=== PATIENT | male | born 1955 | race American Indian/Alaskan Native ===

== ENCOUNTER 2017-04-23 07:07 | Emergency (ER) | payer OTHER, MEDICARE ==
[2017-04-23 07:39] VITALS: BP 160/93
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
== END 2017-04-23 08:47 | disposition home or self-care (01) ==
LOC: ED 07:07
DX: M79.602 Pain in left arm (principal); M54.89 Other dorsalgia; J44.9 Chronic obstructive pulmonary disease, unspecified; V89.2XXA Person injured in unspecified motor-vehicle accident, traffic, initial encounter; Y93.89 Activity, other specified; Y99.8 Other external cause status; Y92.89 Other specified places as the place of occurrence of the external cause; Z85.46 Personal history of malignant neoplasm of prostate; Z85.89 Personal history of malignant neoplasm of other organs and systems; Z98.890 Other specified postprocedural states; Z87.891 Personal history of nicotine dependence
CPT/HCPCS: 99282

== ENCOUNTER 2017-10-14 07:16 | Outpatient (CLI) | payer MEDICARE ==
--- NOTE | 2017-10-14 07:50 | XRay Report ---
CHEST 2 VIEWS INDICATION: Atypical chest pain. History of prostate cancer. COMPARISON: 06/10/2008 FINDINGS: PA and lateral chest radiographs demonstrate stable cardiomediastinal silhouette. Clear lungs. Left hemidiaphragm again minimally elevated. Right AC joint and mid thoracic spine degenerative changes. CONCLUSION: No acute chest process or significant interval change, as described. Thank you for the opportunity to participate in this patient's care.
== END 2017-10-14 07:17 | disposition home or self-care (01) ==
LOC: XRAY 07:16
PROVIDERS: ATTEND Internal Medicine
DX: J98.6 Disorders of diaphragm (principal); R07.89 Other chest pain; M47.894 Other spondylosis, thoracic region; Z85.46 Personal history of malignant neoplasm of prostate
CPT/HCPCS: 71046

== ENCOUNTER 2018-10-03 08:12 | Inpatient (IN) | payer MEDICARE ==
[2018-10-03 08:29] LABS: Basophils % (Auto) 0.4 % (0.0-1.8); Eosinophils # (Auto) 0.2 K/mm3 (0.0-0.4); Eosinophils % (Auto) 2.6 % (0.0-4.3); Hematocrit 39.7 % (35.5-45.6); Hemoglobin 13.3 gm/dl (11.8-15.2); Lymphocytes # (Auto) 1.9 K/mm3 (1.2-5.4); Lymphocytes % (Auto) 24.8 % (13.4-35.0); Mean Corpuscular HGB Conc 34 % (32-34); Mean Corpuscular Volume 87 fl (84-94); Monocytes # (Auto) 0.4 K/mm3 (0.0-0.8); Monocytes % (Auto) 5.6 % (0.0-7.3); Platelet Count 245 K/mm3 (140-440); Red Blood Count 4.56 M/mm3 (3.65-5.03); Red Cell Distribution Width 15.6 % (13.2-15.2)
[2018-10-03 08:45] LABS: Alanine Aminotransferase 17 units/L (7-56); Albumin 4.8 g/dL (3.9-5); BUN/Creatinine Ratio 12; Blood Urea Nitrogen 14 mg/dL (9-20); Calcium 9.4 mg/dL (8.4-10.2); Hemolysis Index 9
[2018-10-03] MEDS ORDERED: ZOFRAN IV ONE (09:10)
[2018-10-03] MEDS ORDERED: ZOFRAN ONE (09:17)
[2018-10-03] MEDS ORDERED: KEPPRA 1,000 MG/NS 0.75% 100ML 1,000 MG/100 ML BAG IV ONE ×2 (09:20→09:29)
[2018-10-03] MEDS ORDERED: NACL 0.9% 1000 ML 1,000 ML IV ONE (09:26)
--- NOTE | 2018-10-03 09:28 | Emergency Department Report ---
ED Seizure HPI - General Chief Complaint: Nausea/Vomiting/Diarrhea Stated Complaint: VOMIT/DIARRHEA/STOMACH PAIN Time Seen by Provider: 10/03/18 09:21 Source: patient Mode of arrival: Ambulatory Limitations: No Limitations - History of Present Illness Initial Comments: Patient is a 63-year-old male that presents emergency room with complaints of nausea vomiting diarrhea however while the patient was waiting in our emergency room patient had a witnessed syncopal episode and then went into a seizure. She is currently answering most questions appropriately at this time. Patient was brought back immediately to a room. Patient denies chest pain shortness of breath. Patient's family is at bedside. Patient does not have a history of seizures. MD Complaint: seizure, loss of consciousness -: Sudden Description of Episode: loss of consciousness, tonic-clonic movement -: second(s) Witnessed:: Yes Trauma: No Seizure History: none Place: other (in the hospital waiting her) Possible Precipitating Event: other (nausea vomiting diarrhea 1 day) Associated Symptoms: diaphoresis, syncope. denies: chest pain, confusion, cough, fever/chills, loss of appetite, malaise, rash, shortness of breath, weakn ess, tongue injury, shoulder dislocation Treatments Prior to Arrival: none - Related Data Home Medications Medication Instructions Recorded Confirmed Last Taken Acetaminophen [Tylenol] 500 mg PO Q48HR PRN 10/03/18 10/03/18 Unknown Benzonatate [Tessalon Perle] 100 mg PO BID PRN 10/03/18 10/03/18 Unknown Hydrocortisone [Cortef TAB] 10 mg PO BID 10/03/18 10/03/18 1 Day Ago ~10/02/18 Levothyroxine [Synthroid] 25 mcg PO QAM 10/03/18 10/03/18 10/02/18 Loratadine [Claritin] 10 mg PO DAILY 10/03/18 10/03/18 Unknown Omeprazole Magnesium [PriLOSEC Otc] 20 mg PO QDAY 10/03/18 10/03/18 10/02/18 Ondansetron [Zofran TAB] 4 mg PO Q8HR PRN 10/03/18 10/03/18 Unknown Rosuvastatin (Nf) 10 mg PO HS 10/03/18 10/03/18 10/02/18 Tamsulosin HCl [Flomax] 0.4 mg PO HS 10/03/18 10/03/18 10/02/18 VENTOLIN Inhaler(NF) 90 mcg INHALATION QDAY PRN 10/03/18 10/03/18 Unknown Previous Rx's Medication Instructions Recorded Last Taken Type Ibuprofen [Motrin] 600 mg PO Q8H PRN #15 tablet 04/23/17 Unknown Rx Allergies Allergy/AdvReac Type Severity Reaction Status Date / Time No Known Allergies Allergy Verified 10/03/18 08:13 ED Review of Systems ROS: Stated complaint: VOMIT/DIARRHEA/STOMACH PAIN Other details as noted in HPI Constitutional: denies: chills, fever Eyes: denies: eye pain, eye discharge, vision change ENT: denies: ear pain, throat pain Respiratory: denies: cough, shortness of breath, wheezing Cardiovascular: denies: chest pain, palpitations Endocrine: no symptoms reported Gastrointestinal: nausea, vomiting, diarrhea. denies: abdominal pain Genitourinary: denies: urgency, dysuria Musculoskeletal: denies: back pain, joint swelling, arthralgia Skin: denies: rash, lesions Neurological: denies: headache, weakness, paresthesias Psychiatric: denies: anxiety, depression Hematological/Lymphatic: denies: easy bleeding, easy bruising ED Past Medical Hx - Past Medical History Previous Medical History?: Yes Hx Seizures: No Hx COPD: Yes Additional medical history: pituitary tumor, Back pain - Surgical History Past Surgical History?: Yes Additional Surgical History: pituitary tumor removed, Back surgery, Right hip surgery, right wrist surgery - Family History Family history: no significant - Social History Smoking Status: Never Smoker Substance Use Type: None - Medications Home Medications: Home Medications Medication Instructions Recorded Confirmed Last Taken Type Ibuprofen [Motrin] 600 mg PO Q8H PRN #15 tablet 04/23/17 10/03/18 Unknown Rx Acetaminophen [Tylenol] 500 mg PO Q48HR PRN 10/03/18 10/03/18 Unknown History Benzonatate [Tessalon Perle] 100 mg PO BID PRN 10/03/18 10/03/18 Unknown History Hydrocortisone [Cortef TAB] 10 mg PO BID 10/03/18 10/03/18 1 Day Ago History ~10/02/18 Levothyroxine [Synthroid] 25 mcg PO QAM 10/03/18 10/03/18 10/02/18 History Loratadine [Claritin] 10 mg PO DAILY 10/03/18 10/03/18 Unknown History Omeprazole Magnesium [PriLOSEC Otc] 20 mg PO QDAY 10/03/18 10/03/18 10/02/18 History Ondansetron [Zofran TAB] 4 mg PO Q8HR PRN 10/03/18 10/03/18 Unknown History Rosuvastatin (Nf) 10 mg PO HS 10/03/18 10/03/18 10/02/18 History Tamsulosin HCl [Flomax] 0.4 mg PO HS 10/03/18 10/03/18 10/02/18 History VENTOLIN Inhaler(NF) 90 mcg INHALATION QDAY PRN 10/03/18 10/03/18 Unknown History ED Physical Exam - General Limitations: No Limitations General appearance: alert, in no apparent distress - Head Head exam: Present: atraumatic, normocephalic - Eye Eye exam: Present: normal appearance - ENT ENT exam: Present: mucous membranes moist - Neck Neck exam: Present: normal inspection - Respiratory Respiratory exam: Present: normal lung sounds bilaterally. Absent: respiratory distress - Cardiovascular Cardiovascular Exam: Present: regular rate, normal rhythm. Absent: systolic murmur, diastolic murmur, rubs, gallop - GI/Abdominal GI/Abdominal exam: Present: soft, normal bowel sounds - Rectal Rectal exam: Present: deferred - Extremities Exam Extremities exam: Present: normal inspection - Back Exam Back exam: Present: normal inspection - Neurological Exam Neurological exam: Present: alert, oriented X3 - Psychiatric Psychiatric exam: Present: normal affect, normal mood - Skin Skin exam: Present: warm, dry, intact, normal color. Absent: rash ED Course Vital Signs 10/03/18 10/03/18 10/03/18 08:17 09:36 09:45 Temperature 97.7 F Pulse Rate 89 88 84 Respiratory 18 17 17 Rate Blood Pressure 123/75 117/74 O2 Sat by Pulse 98 96 Oximetry 10/03/18 10/03/18 10/03/18 10:06 10:09 10:15 Temperature 98.1 F Pulse Rate 83 82 Respiratory 18 15 Rate Blood Pressure 117/74 111/64 O2 Sat by Pulse 100 95 Oximetry 10/03/18 10/03/18 10/03/18 10:30 10:45 11:00 Temperature Pulse Rate 88 82 85 Respiratory 19 15 18 Rate Blood Pressure 107/68 116/66 112/70 O2 Sat by Pulse 97 98 Oximetry 10/03/18 10/03/18 10/03/18 11:15 11:30 11:45 Temperature Pulse Rate 80 86 83 Respiratory 16 14 14 Rate Blood Pressure 111/66 114/74 106/72 O2 Sat by Pulse 98 98 Oximetry 10/03/18 10/03/18 10/03/18 12:00 12:15 12:30 Temperature Pulse Rate 87 86 86 Respiratory 13 24 15 Rate Blood Pressure 107/77 116/76 124/75 O2 Sat by Pulse 95 94 Oximetry 10/03/18 12:45 Temperature Pulse Rate 84 Respiratory 11 L Rate Blood Pressure 118/67 O2 Sat by Pulse 94 Oximetry - Consultations Consultation #1: Hospitalist consulted for admission. Hospitalist to admit patient. Hospitalist to assume care patient. Bridge orders placed 10/03/18 11:53 ED Medical Decision Making - Lab Data Result diagrams: 10/03/18 08:17 10/03/18 08:17 - EKG Data -: EKG Interpreted by Al EKG shows normal: sinus rhythm, axis, intervals, QRS complexes, ST-T waves Rate: normal - Radiology Data Radiology results: report reviewed, image reviewed CT HEAD WITHOUT CONTRAST: 10/03/18 08:12:00 CLINICAL: New onset seizure. TECHNIQUE: 2.5-mm noncontrast scans. COMPARISON:None FINDINGS: The ventricles and sulci are normal for age.Focal hypodensities in the right occipital lobe and the right dennise are consistent with chronic lacunar infarct. No suspicious hypodensity. No mass or mass effect. No hemorrhage, edema or extra-axial collection. The sinuses are clear. Normal orbits and soft tissues. The calvarium and skull base are intact. IMPRESSION: Chronic lacunar infarcts of the right occipital lobe and the right dennise. No acute change. - Medical Decision Making Patient is a 63-year-old male that presents emergency room with complaints of nausea vomiting diarrhea. While the patient was in our waiting room patient had a syncopal episode and then had a seizure. Patient does not have a history of seizures. Patient will be admitted to the hospitalist service for further evaluation treatment. Patient will most likely require a neurology consult. Patient's labs unremarkable. Patient's EKG unremarkable. Patient's head CT acute findings. - Differential Diagnosis n/v/d. syncope. dehydration. new sz. Critical Care Time: Yes Critical care attestation.: If time is entered above; I have spent that time in minutes in the direct care of this critically ill patient, excluding procedure time. Critical Care Time: 35 minutes ED Disposition Clinical Impression: New onset seizure, Syncope and collapse Nausea & vomiting Qualifiers: Vomiting type: unspecified Vomiting Intractability: non-intractable Qualified Code(s): R11.2 - Nausea with vomiting, unspecified Diarrhea Qualifiers: Diarrhea type: unspecified type Qualified Code(s): R19.7 - Diarrhea, unspecified Disposition: DC-09 OP ADMIT IP TO THIS HOSP Is pt being admited?: Yes Does the pt Need Aspirin: No Condition: Critical Time of Disposition: 11:54
--- NOTE | 2018-10-03 10:37 | Cat Scan Report ---
CT HEAD WITHOUT CONTRAST: 10/03/18 08:12:00 CLINICAL: New onset seizure. TECHNIQUE: 2.5-mm noncontrast scans. COMPARISON:None FINDINGS: The ventricles and sulci are normal for age.Focal hypodensities in the right occipital lobe and the right dennise are consistent with chronic lacunar infarct. No suspicious hypodensity. No mass or mass effect. No hemorrhage, edema or extra-axial collection. The sinuses are clear. Normal orbits and soft tissues. The calvarium and skull base are intact. IMPRESSION: Chronic lacunar infarcts of the right occipital lobe and the right dennise. No acute change.
[2018-10-03 13:16] LABS: Bilirubin,Urine NEG (Negative); Blood,Urine SM (Negative); Color,Urine Straw (Yellow); Mucus,Urine FEW /HPF; Protein,Urine <15 mg/dL mg/dL (Negative); Urobilinogen,Urine < 2.0 mg/dL (<2.0); WBC,Urine < 1.0 /HPF (0.0-6.0)
[2018-10-03] MEDS ORDERED: PERCOCET 5/325 PO PRN (17:26)
[2018-10-03] MEDS ORDERED: TYLENOL PO PRN (17:26)
[2018-10-03] MEDS ORDERED: DILAUDID IV PRN (17:26)
[2018-10-03] MEDS ORDERED: SODIUM CHLORIDE FLUSH SYRINGE 10 ML IV PRN (17:26)
[2018-10-03] MEDS ORDERED: ZOFRAN IV PRN (17:26)
[2018-10-03] MEDS ORDERED: VENTOLIN 90 MCG INHALATION PRN (17:28)
[2018-10-03] MEDS ORDERED: PROVENTIL IH PRN (17:42)
[2018-10-03] MEDS: D5NS 1,000 ML IV SCH (18:58)
[2018-10-03] MEDS: CLARITIN PO SCH (19:01)
[2018-10-03] MEDS ORDERED: NON-FORMULARY (Rosuvastatin (Nf) 10 MG) PO SCH (22:00)
[2018-10-03] MEDS: CORTEF PO SCH (23:30)
[2018-10-03] MEDS: PEPCID PO SCH (23:30)
[2018-10-03] MEDS: SODIUM CHLORIDE FLUSH SYRINGE 10 ML IV SCH (23:31)
[2018-10-03] MEDS: FLOMAX PO SCH (23:33)
[2018-10-04] MEDS: D5NS 1,000 ML IV SCH ×2 (04:06→16:41)
[2018-10-04 06:58] LABS: Basophils % (Auto) 0.6 % (0.0-1.8); Eosinophils # (Auto) 0.2 K/mm3 (0.0-0.4); Eosinophils % (Auto) 4.5 % (0.0-4.3); Hematocrit 34.3 % (35.5-45.6); Hemoglobin 11.6 gm/dl (11.8-15.2); Lymphocytes % (Auto) 26.5 % (13.4-35.0); Mean Corpuscular HGB Conc 34 % (32-34); Mean Corpuscular Volume 87 fl (84-94); Monocytes # (Auto) 0.3 K/mm3 (0.0-0.8); Monocytes % (Auto) 7.3 % (0.0-7.3); Platelet Count 201 K/mm3 (140-440); Red Blood Count 3.93 M/mm3 (3.65-5.03); Red Cell Distribution Width 15.8 % (13.2-15.2)
--- NOTE | 2018-10-04 07:21 | History and Physical Report ---
History of Present Illness Date of examination: 10/03/18 Date of admission: 10/03/18 11:54 Chief complaint: Nausea vomiting and Diarrhea since AM Passed out in ER History of present illness: Patient is a 63-year-old male that presents emergency room with complaints of nausea vomiting diarrhea however while the patient was waiting in our emergency room patient had a witnessed syncopal episode and then went into a seizure. He is currently answering most questions appropriately at this time. Patient was brought back immediately to a room. Patient denies chest pain shortness of breath. Patient's family is at bedside. Patient does not have a history of seizures. Past Medical History Previous Medical History?: Yes Hx COPD: Yes Additional medical history: pituitary tumor, Back pain Surgical History Past Surgical History?: Yes Additional Surgical History: pituitary tumor removed, Back surgery, Right hip surgery, right wrist surgery Family History Family history:Htn Social History Smoking Status: Never Smoker Substance Use Type: None Medications Home Medications: Home Medications Medication Instructions Recorded Confirmed Last Taken Type Ibuprofen [Motrin] 600 mg PO Q8H PRN #15 tablet 04/23/17 10/03/18 Unknown Rx Acetaminophen [Tylenol] 500 mg PO Q48HR PRN 10/03/18 10/03/18 Unknown History Benzonatate [Tessalon Perle] 100 mg PO BID PRN 10/03/18 10/03/18 Unknown History Hydrocortisone [Cortef TAB] 10 mg PO BID 10/03/18 10/03/18 1 Day Ago History ~10/02/18 Levothyroxine [Synthroid] 25 mcg PO QAM 10/03/18 10/03/18 10/02/18 History Loratadine [Claritin] 10 mg PO DAILY 10/03/18 10/03/18 Unknown History Omeprazole Magnesium [PriLOSEC Otc] 20 mg PO QDAY 10/03/18 10/03/18 10/02/18 History Ondansetron [Zofran TAB] 4 mg PO Q8HR PRN 10/03/18 10/03/18 Unknown History Rosuvastatin (Nf) 10 mg PO HS 10/03/18 10/03/18 10/02/18 History Tamsulosin HCl [Flomax] 0.4 mg PO HS 10/03/18 10/03/18 10/02/18 History VENTOLIN Inhaler(NF) 90 mcg INHALATION QDAY PRN 10/03/18 10/03/18 Unknown History Review of Systems ROS: Stated complaint: VOMIT/DIARRHEA/STOMACH PAIN Other details as noted in HPI Constitutional: denies: chills, fever Eyes: denies: eye pain, eye discharge, vision change ENT: denies: ear pain, throat pain Respiratory: denies: cough, shortness of breath, wheezing Cardiovascular: denies: chest pain, palpitations Endocrine: no symptoms reported Gastrointestinal: nausea, vomiting, diarrhea. denies: abdominal pain Genitourinary: denies: urgency, dysuria Musculoskeletal: denies: back pain, joint swelling, arthralgia Skin: denies: rash, lesions Neurological: denies: headache, weakness, paresthesias Psychiatric: denies: anxiety, depression Hematological/Lymphatic: denies: easy bleeding, easy bruising Medications and Allergies Allergies Allergy/AdvReac Type Severity Reaction Status Date / Time No Known Allergies Allergy Verified 10/03/18 08:13 Home Medications Medication Instructions Recorded Confirmed Last Taken Type Ibuprofen [Motrin] 600 mg PO Q8H PRN #15 tablet 04/23/17 10/03/18 Unknown Rx Acetaminophen [Tylenol] 500 mg PO Q48HR PRN 10/03/18 10/03/18 Unknown History Benzonatate [Tessalon Perle] 100 mg PO BID PRN 10/03/18 10/03/18 Unknown History Hydrocortisone [Cortef TAB] 10 mg PO BID 10/03/18 10/03/18 1 Day Ago History ~10/02/18 Levothyroxine [Synthroid] 25 mcg PO QAM 10/03/18 10/03/18 10/02/18 History Loratadine [Claritin] 10 mg PO DAILY 10/03/18 10/03/18 Unknown History Omeprazole Magnesium [PriLOSEC Otc] 20 mg PO QDAY 10/03/18 10/03/18 10/02/18 History Ondansetron [Zofran TAB] 4 mg PO Q8HR PRN 10/03/18 10/03/18 Unknown History Rosuvastatin (Nf) 10 mg PO HS 10/03/18 10/03/18 10/02/18 History Tamsulosin HCl [Flomax] 0.4 mg PO HS 10/03/18 10/03/18 10/02/18 History VENTOLIN Inhaler(NF) 90 mcg INHALATION QDAY PRN 10/03/18 10/03/18 Unknown History Active Meds: Active Medications Acetaminophen (Tylenol) 650 mg PO Q4H PRN PRN Reason: Pain MILD(1-3)/Fever >100.5/GAN Albuterol (Proventil) 2.5 mg IH Q4HRT PRN PRN Reason: Shortness Of Breath Atorvastatin Calcium (Lipitor) 20 mg PO QHS [facility] Last Admin: 10/03/18 23:30 Dose: 20 mg Documented by: Famotidine (Pepcid) 20 mg PO BID [facility] Last Admin: 10/03/18 23:30 Dose: 20 mg Documented by: Hydrocortisone Acetate (Cortef) 10 mg PO BID [facility] Last Admin: 10/03/18 23:30 Dose: 10 mg Documented by: Hydromorphone HCl (Dilaudid) 0.5 mg IV Q3H PRN PRN Reason: Pain , Severe (7-10) Dextrose/Sodium Chloride (D5ns) 1,000 mls @ 100 mls/hr IV DIRECT [facility] Last Admin: 10/04/18 04:06 Dose: 100 mls/hr Documented by: Levothyroxine Sodium (Synthroid) 25 mcg PO QAM [facility] Loratadine (Claritin) 10 mg PO DAILY [facility] Last Admin: 10/03/18 19:01 Dose: 10 mg Documented by: Ondansetron HCl (Zofran) 4 mg IV Q8H PRN PRN Reason: Nausea And Vomiting Oxycodone/Acetaminophen (Percocet 5/325) 1 tab PO Q6H PRN PRN Reason: Pain, Moderate (4-6) Sodium Chloride (Sodium Chloride Flush Syringe 10 Ml) 10 ml IV BID [facility] Last Admin: 10/03/18 23:31 Dose: 10 ml Documented by: Sodium Chloride (Sodium Chloride Flush Syringe 10 Ml) 10 ml IV PRN PRN PRN Reason: LINE FLUSH Tamsulosin HCl (Flomax) 0.4 mg PO [facility] Last Admin: 10/03/18 23:33 Dose: 0.4 mg Documented by: Exam - Constitutional Vitals: Temp Pulse Resp BP Pulse Ox 98.4 F 87 18 101/64 94 10/04/18 05:33 10/04/18 05:33 10/04/18 05:33 10/04/18 05:33 10/04/18 05:33 General appearance: Present: no acute distress, well-nourished - EENT Eyes: Present: PERRL ENT: hearing intact, clear oral mucosa - Neck Neck: Present: supple, normal ROM - Respiratory Respiratory effort: normal Respiratory: bilateral: CTA - Cardiovascular Heart rate: 78 Rhythm: regular Heart Sounds: Present: S1 & S2. Absent: rub, click - Extremities Extremities: no ischemia, pulses intact, pulses symmetrical, No edema Peripheral Pulses: within normal limits - Abdominal General gastrointestinal: Present: soft, non-tender, non-distended, normal bowel sounds Male genitourinary: Present: deferred, normal - Rectal Rectal Exam: deferred - Integumentary Integumentary: Present: clear, warm, dry - Musculoskeletal Musculoskeletal: gait normal, strength equal bilaterally - Psychiatric Psychiatric: appropriate mood/affect, intact judgment & insight - Neurologic Neurologic: CNII-XII intact, moves all extremities - Allied Health Allied health notes reviewed: nursing, case management Results - Labs CBC & Chem 7: 10/04/18 06:41 10/03/18 08:17 Labs: Laboratory Last Values WBC 3.8 K/mm3 (4.5-11.0) L 10/04/18 06:41 RBC 3.93 M/mm3 (3.65-5.03) 10/04/18 06:41 Hgb 11.6 gm/dl (11.8-15.2) L 10/04/18 06:41 Hct 34.3 % (35.5-45.6) L 10/04/18 06:41 MCV 87 fl (84-94) 10/04/18 06:41 MCH 30 pg (28-32) 10/04/18 06:41 MCHC 34 % (32-34) 10/04/18 06:41 RDW 15.8 % (13.2-15.2) H 10/04/18 06:41 Plt Count 201 K/mm3 (140-440) 10/04/18 06:41 Lymph % (Auto) 26.5 % (13.4-35.0) 10/04/18 06:41 Pope % (Auto) 7.3 % (0.0-7.3) 10/04/18 06:41 Eos % (Auto) 4.5 % (0.0-4.3) H 10/04/18 06:41 Baso % (Auto) 0.6 % (0.0-1.8) 10/04/18 06:41 Lymph # 1.0 K/mm3 (1.2-5.4) L 10/04/18 06:41 Pope # 0.3 K/mm3 (0.0-0.8) 10/04/18 06:41 Eos # 0.2 K/mm3 (0.0-0.4) 10/04/18 06:41 Baso # 0.0 K/mm3 (0.0-0.1) 10/04/18 06:41 Seg Neutrophils % 61.1 % (40.0-70.0) 10/04/18 06:41 Seg Neutrophils # 2.3 K/mm3 (1.8-7.7) 10/04/18 06:41 Sodium 145 mmol/L (137-145) 10/03/18 08:17 Potassium 3.8 mmol/L (3.6-5.0) 10/03/18 08:17 Chloride 105.6 mmol/L (98-107) 10/03/18 08:17 Carbon Dioxide 29 mmol/L (22-30) 10/03/18 08:17 Anion Gap 14 mmol/L 10/03/18 08:17 BUN 14 mg/dL (9-20) 10/03/18 08:17 Creatinine 1.2 mg/dL (0.8-1.5) 10/03/18 08:17 Estimated GFR > 60 ml/min 10/03/18 08:17 BUN/Creatinine Ratio 12 % 10/03/18 08:17 Glucose 113 mg/dL (75-100) H 10/03/18 08:17 POC Glucose 122 (70-105) H 10/03/18 09:16 Hemoglobin A1c 7.2 % (4-6) H 10/03/18 17:37 Calcium 9.4 mg/dL (8.4-10.2) 10/03/18 08:17 Total Bilirubin 0.30 mg/dL (0.1-1.2) 10/03/18 08:17 AST 26 units/L (5-40) 10/03/18 08:17 ALT 17 units/L (7-56) 10/03/18 08:17 Alkaline Phosphatase 77 units/L (35-129) 10/03/18 08:17 Total Protein 7.8 g/dL (6.3-8.2) 10/03/18 08:17 Albumin 4.8 g/dL (3.9-5) 10/03/18 08:17 Albumin/Globulin Ratio 1.6 % 10/03/18 08:17 Lipase 66 units/L (13-60) H 10/03/18 08:17 Urine Color Straw (Yellow) 10/03/18 12:59 Urine Turbidity Clear (Clear) 10/03/18 12:59 Urine pH 6.0 (5.0-7.0) 10/03/18 12:59 Ur Specific [place] 1.009 (1.003-1.030) 10/03/18 12:59 Urine Protein <15 mg/dl mg/dL (Negative) 10/03/18 12:59 Urine Glucose (UA) Neg mg/dL (Negative) 10/03/18 12:59 Urine Ketones Neg mg/dL (Negative) 10/03/18 12:59 Urine Blood Sm (Negative) 10/03/18 12:59 Urine Nitrite Neg (Negative) 10/03/18 12:59 Urine Bilirubin Neg (Negative) 10/03/18 12:59 Urine Urobilinogen < 2.0 mg/dL (<2.0) 10/03/18 12:59 Ur Leukocyte Esterase Neg (Negative) 10/03/18 12:59 Urine WBC (Auto) < 1.0 /HPF (0.0-6.0) 10/03/18 12:59 Urine RBC (Auto) 1.0 /HPF (0.0-6.0) 10/03/18 12:59 U Epithel Cells (Auto) < 1.0 /HPF (0-13.0) 10/03/18 12:59 Urine Mucus Few /HPF 10/03/18 12:59 Short CBC 10/03/18 10/04/18 Range/Units 08:17 06:41 WBC 7.9 3.8 L (4.5-11.0) K/mm3 Hgb 13.3 11.6 L (11.8-15.2) gm/dl Hct 39.7 34.3 L (35.5-45.6) % Plt Count 245 201 (140-440) K/mm3 BMP 10/03/18 08:17 Sodium 145 Potassium 3.8 Chloride 105.6 Carbon Dioxide 29 BUN 14 Creatinine 1.2 Glucose 113 H Calcium 9.4 Liver Function 10/03/18 Range/Units 08:17 Total Bilirubin 0.30 (0.1-1.2) mg/dL AST 26 (5-40) units/L ALT 17 (7-56) units/L Alkaline Phosphatase 77 (35-129) units/L Albumin 4.8 (3.9-5) g/dL Urine 10/03/18 Range/Units 12:59 Urine Color Straw (Yellow) Urine pH 6.0 (5.0-7.0) Ur Specific [place] 1.009 (1.003-1.030) Urine Protein <15 mg/dl (Negative) mg/dL Urine Glucose (UA) Neg (Negative) mg/dL - Imaging and Cardiology EKG: report reviewed (NSR 83/min) Imaging and Cardiology: Head Ct IMPRESSION: Chronic lacunar infarcts of the right occipital lobe and the right dennise. No acute change. Assessment and Plan Advance Directives: Yes (Full code) VTE prophylaxis?: Chemical Plan of care discussed with patient/family: Yes - Patient Problems (1) Syncope and collapse Current Visit: Yes Status: Acute Plan to address problem: Sec to Orthostatic Hpotension and volume depletion IV fluids for now Echo and CDS (2) Nausea & vomiting Current Visit: Yes Status: Acute Qualifiers: Vomiting type: unspecified Vomiting Intractability: non-intractable Qualified Code(s): R11.2 - Nausea with vomiting, unspecified Plan to address problem: Sx tretment GI virus?? 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 Plan to address problem: Cont Steroids (4) Hypothyroidism Current Visit: Yes Status: Chronic Qualifiers: Hypothyroidism type: acquired Qualified Code(s): E03.9 - Hypothyroidism, unspecified Plan to address problem: Cont Levothyroid (5) BPH (benign prostatic hyperplasia) Current Visit: Yes Status: Chronic Qualifiers: Lower urinary tract symptom presence: symptoms present Plan to address problem: Cont Flomax (6) GERD (gastroesophageal reflux disease) Current Visit: Yes Status: Chronic Qualifiers: Esophagitis presence: without esophagitis Qualified Code(s): K21.9 - Gas tro-esophageal reflux disease without esophagitis Plan to address problem: Cont PPi's (7) HLD (hyperlipidemia) Current Visit: Yes Status: Chronic Qualifiers: Hyperlipidemia type: mixed hyperlipidemia Qualified Code(s): E78.2 - Mixed hyperlipidemia Plan to address problem: Cont statins (8) DVT prophylaxis Current Visit: Yes Status: Acute Plan to address problem: On Lovenox and GI prophylaxis
[2018-10-04 07:25] LABS: Alanine Aminotransferase 16 units/L (7-56); Albumin 3.7 g/dL (3.9-5); BUN/Creatinine Ratio 10; Blood Urea Nitrogen 12 mg/dL (9-20); Calcium 7.8 mg/dL (8.4-10.2); Hemolysis Index 6
[2018-10-04] MEDS ORDERED: LEXISCAN IV ONE ×2 (08:06→08:13)
--- NOTE | 2018-10-04 12:02 | Treadmill Report ---
NUCLEAR STRESS TEST DESCRIPTION OF PROCEDURE: The patient is brought to the Cardiology lab and a Lexiscan stress test is performed. The patient tolerated the procedure well. FINDINGS: Post-stress images reveal fairly homogeneous distribution of the isotope with no significant reversibility during rest. Ejection fraction is calculated to be 66%. No significant wall motion abnormalities are noted. IMPRESSION: 1. Nuclear stress test is noted to be negative for significant reversibility to indicate ischemia. 2. Good systolic function with a calculated ejection fraction of 66%. 3. Suggests clinical correlation. JOB# [id number] KBM/NTS
[2018-10-04] MEDS: SYNTHROID PO SCH (12:37)
[2018-10-04] MEDS: PEPCID PO SCH ×2 (12:37→22:39)
[2018-10-04] MEDS: CLARITIN PO SCH (12:37)
[2018-10-04] MEDS: CORTEF PO SCH ×2 (12:48→22:39)
[2018-10-04] MEDS: SODIUM CHLORIDE FLUSH SYRINGE 10 ML IV SCH ×2 (12:49→22:50)
--- NOTE | 2018-10-04 13:25 | Progress Note ---
Assessment and Plan Patient is a 63-year-old male that presents emergency room with complaints of nausea vomiting diarrhea however while the patient was waiting in our emergency room patient had a witnessed syncopal episode and then went into a seizure-like episode. He is currently answering most questions appropriately at this time. Patient was brought back immediately to a room. Patient denies chest pain shortness of breath. Patient's family is at bedside. Patient does not have a history of seizures. - Syncope and collapse Secondary to Orthostatic Hpotension and volume depletion Continue with IV fluids for now Carotid Doppler and echo reports pending Stress test was negative for any ischemic event - Nausea & vomiting Sx tretment GI virus?? - Pituitary insufficiency Current Visit: Yes Status: Chronic Plan to address problem: Cont Steroids - Hypothyroidism Cont Levothyroid - BPH (benign prostatic hyperplasia) Cont Flomax - GERD (gastroesophageal reflux disease) Cont PPi's - HLD (hyperlipidemia) Cont statins - DVT prophylaxis On Lovenox and GI prophylaxis Subjective Date of service: 10/04/18 Principal diagnosis: gastroenteritis, syncope, hypothyroidism, GERD Interval history: Vomiting is improved. Abdominal pain improved. No fever. No hematemesis or melena. Objective - Exam Narrative Exam: Constitutional: Well-nourished well-developed. In no distress Head: Normocephalic atraumatic Eyes: Pupils are equal round and reactive to light Nose: No enlarged turbinates, no septal deviation. Mouth: Moist mucous membranes. Neck: Supple no thyromegaly. No bruit. No JVD Heart: Regular rate and rhythm, S1-S2 normal. No rubs murmurs or gallop Lungs: Clear to auscultation bilaterally. no rales or rhonchi Abdomen: Soft, nontender. Bowel sound are present. Extremities: No edema, no cyanosis, no clubbing. Neuro: Alert oriented Oriented x3. No focal sensory or motor deficit. Skin: No rashes or hyperpigmented spots Musculoskeletal system: No joint pain or swelling Hematological: No petechia or subcutanous hemorrhages. Immunological: No multiple septic spots on the skin Lymphatic: No generalized lymphadenopathy Psychiatry: Euthymic. Calm. - Constitutional Vitals: Vital Signs - 12hr 10/04/18 10/04/18 10/04/18 05:33 08:52 08:57 Temperature 98.4 F Pulse Rate 87 Respiratory 18 Rate Blood Pressure 101/64 160/82 145/78 O2 Sat by Pulse 94 Oximetry 10/04/18 10/04/18 10/04/18 09:14 09:15 09:17 Temperature Pulse Rate Respiratory Rate Blood Pressure 155/84 161/104 159/82 O2 Sat by Pulse Oximetry 10/04/18 09:19 Temperature Pulse Rate Respiratory Rate Blood Pressure 135/79 O2 Sat by Pulse Oximetry - Labs CBC & Chem 7: 10/04/18 06:41 10/04/18 06:41 Labs: Abnormal lab results 10/03/18 10/04/18 10/04/18 Range/Units 17:37 06:41 06:41 WBC 3.8 L (4.5-11.0) K/mm3 Hgb 11.6 L (11.8-15.2) gm/dl Hct 34.3 L (35.5-45.6) % RDW 15.8 H (13.2-15.2) % Eos % (Auto) 4.5 H (0.0-4.3) % Lymph # 1.0 L (1.2-5.4) K/mm3 Chloride 109.8 H (98-107) mmol/L Glucose 134 H (75-100) mg/dL Hemoglobin A1c 7.2 H (4-6) % Calcium 7.8 L D (8.4-10.2) mg/dL Total Protein 6.0 L D (6.3-8.2) g/dL Albumin 3.7 L (3.9-5) g/dL
--- NOTE | 2018-10-04 15:02 | Vascular Lab Report ---
PROCEDURE: VL CAROTID DUPLEX BILAT TECHNIQUE: Longitudinal and transverse grayscale, color, and Doppler sonographic images were perform ed HISTORY: syncope COMPARISONS: None FINDINGS: Vessel velocity centimeters per second Right Proximal CCA 100 Distal CCA 70 Proximal ICA 86 Mid ICA 109 Distal ICA 74 Proximal ECA 110 Vertebral 64 Subclavian 198 ICA/CCA ratio 1.1 Left: Proximal CCA 118 Distal CCA 100 Proximal ICA 67 Mid ICA 72 Distal ICA 80 Proximal ECA 99 Vertebral 48 Subclavian 140 ICA/CCA ratio 0.68 Antegrade flow in the bilateral vertebral arteries. IMPRESSION: By both velocities and ratios, no hemodynamically significant stenosis of either internal carotid art prince (1-49%). Antegrade flow in the bilateral vertebral arteries. Possible right subclavian artery stenosis. Measurements performed using NASCET criteria.. This document is electronically signed by Rhoda Cassidy MD., October 04 2018 01:40:49 PM ET
[2018-10-04] MEDS ORDERED: LOVENOX SUB-Q SCH (22:00)
[2018-10-04] MEDS: FLOMAX PO SCH (22:39)
[2018-10-05] MEDS: SYNTHROID PO SCH (11:23)
[2018-10-05] MEDS: SODIUM CHLORIDE FLUSH SYRINGE 10 ML IV SCH (11:23)
[2018-10-05] MEDS: PEPCID PO SCH (11:23)
[2018-10-05] MEDS: CORTEF PO SCH (11:23)
[2018-10-05] MEDS: CLARITIN PO SCH (11:23)
[2018-10-05 12:08] VITALS: BP 119/69
--- NOTE | 2018-10-05 13:14 | Progress Note ---
Subjective Date of service: 10/05/18 Principal diagnosis: gastroenteritis, syncope, hypothyroidism, GERD Objective - Constitutional Vitals: Vital Signs - 12hr 10/05/18 10/05/18 05:55 12:07 Temperature 98.2 F 98.0 F Pulse Rate 82 75 Respiratory 20 16 Rate Blood Pressure 136/56 119/69 O2 Sat by Pulse 94 96 Oximetry - Labs CBC & Chem 7: 10/04/18 06:41 10/04/18 06:41
--- NOTE | 2018-10-05 15:21 | Discharge Summary ---
Providers - Providers Date of Admission: 10/03/18 11:54 Date of discharge: 10/05/18 Attending physician: COOPER REESE none Primary care physician: PCP Hospitalization Reason for admission: nausea, vomiting and diarrhea and syncope Condition: Good Pertinent studies: CT of the head that showed no acute event Stress test that was unremarkable for any acute ischemic event Carotid Doppler showed no significant stenosis. Procedures: none Hospital course: Patient is a 63-year-old male that presents emergency room with complaints of nausea vomiting diarrhea however while the patient was waiting in our emergency room patient had a witnessed syncopal episode and then went into a like -seiz ure. He is currently answering most questions appropriately at this time. Patient was brought back immediately to a room. Patient denies chest pain shortness of breath. Patient's family is at bedside. Patient does not have a history of seizures. CT scan of the brain was unremarkable Event. Old left lacunar left. Infection identified. CT scan of the chest was unremarkable. Carotid Doppler showed no significant stenosis. Echocardiogram was done and report is pending. Patient complicated individual without any difficulties. Had no more syncopal episodes, nausea vomiting diarrhea. Patient is anxious to go since yesterday is therefore being discharged today to follow-up with primary care physician in 3-5 days. Discussed with the patient and this who stated that they have all the current medications would not need a knee refills. Disposition: DC-01 TO HOME OR SELFCARE Time spent for discharge: >35 min - Discharge Diagnoses (1) Diarrhea Status: Acute Qualifiers: Diarrhea type: unspecified type Qualified Code(s): R19.7 - Diarrhea, unspecified (2) Nausea & vomiting Status: Acute Qualifiers: Vomiting type: unspecified Vomiting Intractability: non-intractable Qualified Code(s): R11.2 - Nausea with vomiting, unspecified (3) Syncope and collapse Status: Acute (4) GERD (gastroesophageal reflux disease) Status: Chronic Qualifiers: Esophagitis presence: without esophagitis Qualified Code(s): K21.9 - Gastro-esophageal reflux disease without esophagitis (5) HLD (hyperlipidemia) Status: Chronic Qualifiers: Hyperlipidemia type: mixed hyperlipidemia Qualified Code(s): E78.2 - Mixed hyperlipidemia Core Measure Documentation - Palliative Care Palliative Care/ Comfort Measures: Not Applicable - Core Measures Any of the following diagnoses?: none Exam - Physical Exam Narrative exam: Constitutional: Well-nourished well-developed. In no distress Head: Normocephalic atraumatic Eyes: Pupils are equal round and reactive to light Nose: No enlarged turbinates, no septal deviation. Mouth: Moist mucous membranes. Neck: Supple no thyromegaly. No bruit. No JVD Heart: Regular rate and rhythm, S1-S2 normal. No rubs murmurs or gallop Lungs: Clear to auscultation bilaterally. no rales or rhonchi Abdomen: Soft, nontender. Bowel sound are present. Extremities: No edema, no cyanosis, no clubbing. Neuro: Alert oriented Oriented x3. No focal sensory or motor deficit. Skin: No rashes or hyperpigmented spots Musculoskeletal system: No joint pain or swelling Hematological: No petechia or subcutanous hemorrhages. Immunological: No multiple septic spots on the skin Lymphatic: No generalized lymphadenopathy Psychiatry: Euthymic. Calm. - Constitutional Vitals: Temp Pulse Resp BP Pulse Ox 98.0 F 75 16 119/69 96 10/05/18 12:07 10/05/18 12:07 10/05/18 12:07 10/05/18 12:07 10/05/18 12:07 Plan Activity: advance as tolerated, fall precautions Weight Bearing Status: Weight Bear as Tolerated Diet: regular, low cholesterol Follow up with: RL DANIELLE MD [Referring] - 3-5 Days Prescriptions: Tamsulosin HCl [Flomax] 0.4 mg PO HS #30 capsule
== END 2018-10-05 16:40 | disposition home or self-care (01) | DRG 312 ==
LOC: ED 08:12 → 3A 11:54
PROVIDERS: ADMIT Internal Medicine; ATTEND Family Medicine
DX: I95.1 Orthostatic hypotension (principal); E23.0 Hypopituitarism; K52.9 Noninfective gastroenteritis and colitis, unspecified; R56.9 Unspecified convulsions; N40.0 Benign prostatic hyperplasia without lower urinary tract symptoms; E86.9 Volume depletion, unspecified; J44.9 Chronic obstructive pulmonary disease, unspecified; E03.9 Hypothyroidism, unspecified; K21.9 Gastro-esophageal reflux disease without esophagitis; E78.2 Mixed hyperlipidemia; F41.9 Anxiety disorder, unspecified; Z86.73 Personal history of transient ischemic attack (TIA), and cerebral infarction without residual deficits
CPT/HCPCS: 36415; 70450; 78452; 80053; 81001; 82962; 83036; 83690; 84484; 85025; 93005; 93010; 93017; 93306; 93880; 96365; 96375; G0378; A9270-GY; A9502; J1650; J1953; J2405; J2785; J7030; J7042